=== PATIENT | female | born 1990 ===

== ENCOUNTER 2017-12-26 10:43 | Emergency (ER) | payer SELFPAY ==
[2017-12-26 11:15] VITALS: BP 127/83
--- NOTE | 2017-12-26 11:42 | Emergency Department Report ---
Blank Doc - Documentation Documentation: Patient called from waiting room several times did not answer. As per nurse likely left the ER without being seen. There is no phone number listed for me to call the patient back.
== END 2017-12-26 12:01 ==
LOC: ED 10:43
DX: R51 Headache (principal); Z53.21 Procedure and treatment not carried out due to patient leaving prior to being seen by health care provider